=== PATIENT | female | born 1955 | race Two or more races ===

== ENCOUNTER 2019-01-15 20:31 | Inpatient (IN) | payer OTHER ==
[~2019-01-15] VITALS: Ht 162.6 cm; Wt 85.8 kg
--- OUTSIDE RECORDS SUMMARY | 2019-01-15 20:35 | XMS REPORT ---
Author [facility] Address Unknown Phone Unavailable Care Team Providers Care Dry Cleaner Presser Name Role Phone Unavailable Unavailable Payers Payer Name Policy Type Policy Number Effective Date Expiration Date Problems This patient has no known problems. Allergies, Adverse Reactions, Alerts Allergy Name Allergy Type Status Severity Reaction(s) Onset Date Inactive Date Treating Clinician Comments No Known Allergies DA Active U 2018-12-19 00:00:00 No Known Allergies DA Active U 2018-12-13 00:00:00 Medications This patient has no known medications. Results Test Description Test Time Test Comments Text Results Atomic Results Result Comments GLUBED 2018-12-26 06:44:00 GLUBED (test code=GLUBED) 143 mg/dL 74-106 Performed by certified harpoon engagement planning operator at [facility] AB MYCOPLASMA [id number] 01:06:00* Test Item Value Reference Range Comments AB MYCOPLAS PNEUMONIAE IGM EIA (test code=MYCOMABEIA) <770 U/mL 0-769 Negative <770Clinically significant amount of M. pneumoniae antibodynot detected. Low Positive 770 - 950M. pneumoniae specific IgM presumptively detected. Itis recommended that another sample be collected 1-2weeks later to assure reactivity. Positive >950Highly significant amount of M. p neumoniae specificIgM antibody detected.Performed At: [address] [id number] Engle MD Ph:[phone] Negative <770 Clinically significant amount of M.pneumoniae antibody not detected. Low Positive 770 - 950 M. pneumoniae specific IgM presumptively detected. It is recommended that another sample be collected 1-2 weeks later to assure reactivity. Positive >950 Highly significant amount of M.pneumoniae specific IgM antibody detected. AB MYCOPLAS PNEUMO IGG EIA (test code=MYCOGABEIA) <100 U/mL 0-99 Negative: <100 Indeterminate: 100 - 320 Positive: >320The reference interval established is intended as abaseline only. Values >100 may indicate a recentinfection with Mycoplasma pneumoniae and need to beconfirmed either by a positive IgM result and/or anadditional specimen drawn 2-4 weeks later showing asignificant increase in antibody levels. Negative: <100 Indeterminate: 100 - 320 Positive: >320 COMPREHENSIVE METABOLIC [id number] 10:08:00* Test Item Value Reference Range Comments SODIUM (test code=NA) 137 mmol/L 136-145 POTASSIUM (test code=K) 3.9 mmol/L 3.5-5.1 CHLORIDE (test code=CL) 99.0 mmol/L 98-107 CARBON DIOXIDE (test code=CO2) 32.0 mmol/L 21-32 ANION GAP (test code=GAP) 9.9 10-20 GLUCOSE (test code=GLU) 97 mg/dL 74-106 BLOOD UREA NITROGEN (test code=BUN) 10 mg/dL 7-18 GLOMERULAR FILTRATION RATE (test code=GFR) > 60 mL/min >=60 Estimated GFR by using Modified MDRD formula.Chronic kidney disease is defined as either kidney damageor GFR <60 mL/min/1.73 m2 for >3 months. CREATININE (test code=CREAT) 0.60 mg/dL 0.55-1.02 Note change in reference range due to change in reagent. BUN/CREATININE RATIO (test code=BUN/CREA) 16.7 10-20 TOTAL PROTEIN (test code=PROT) 6.2 gram/dL 6.4-8.2 ALBUMIN (test code=ALB) 2.4 g/dL 3.4-5.0 GLOBULIN (test code=GLOB) 3.8 gram/dL 2.7-4.2 ALBUMIN/GLOBULIN RATIO (test code=A/G) 0.6 0.75-1.50 CALCIUM (test code=CA) 9.5 mg/dL 8.5-10.1 BILIRUBIN TOTAL (test code=BILT) 0.20 mg/dL 0.0-1.0 SGOT/AST (test code=AST) 16 IUnit/L 15-37 SGPT/ALT (test code=ALT) 60 IUnit/L 12-78 ALKALINE PHOSPHATASE TOTAL (test code=ALKP) 104 IUnit/L 45-117 Note change in reference range due to change in reagent. [id number] 10:08:00* Test Item Value Reference Range Comments MAGNESIUM (test code=MAG) 1.9 mg/dL 1.8-2.4 ALPHA 1 [id number] 10:08:00* Test Item Value Reference Range Comments ALPHA 1 ANTITRYPSIN (test code=DEHG0BFM) 237 mg/dL 90-200 Performed At: DA [facility] [id number] [facility] [address] [place], [place] [id number] CN MD Ph:[phone] BASIC METABOLIC [id number] 05:46:00* Test Item Value Reference Range Comments SODIUM (test code=NA) 137 mmol/L 136-145 POTASSIUM (test code=K) 4.3 mmol/L 3.5-5.1 CHLORIDE (test code=CL) 98.0 mmol/L 98-107 CARBON DIOXIDE (test code=CO2) 33.0 mmol/L 21-32 ANION GAP (test code=GAP) 10.3 10-20 GLUCOSE (test code=GLU) 113 mg/dL 74-106 BLOOD UREA NITROGEN (test code=BUN) 14 mg/dL 7-18 GLOMERULAR FILTRATION RATE (test code=GFR) > 60 mL/min >=60 Estimated GFR by using Modified MDRD formula.Chronic kidney disease is defined as either kidney damageor GFR <60 mL/min/1.73 m2 for >3 months. CREATININE (test code=CREAT) 0.60 mg/dL 0.55-1.02 Note change in reference range due to change in reagent. BUN/CREATININE RATIO (test code=BUN/CREA) 23.3 10-20 CALCIUM (test code=CA) 10.1 mg/dL 8.5-10.1 BASIC METABOLIC [id number] 05:36:00* Test Item Value Reference Range Comments SODIUM (test code=NA) 137 mmol/L 136-145 POTASSIUM (test code=K) 4.3 mmol/L 3.5-5.1 CHLORIDE (test code=CL) 98.0 mmol/L 98-107 CARBON DIOXIDE (test code=CO2) mmol/L 21-32 ANION GAP (test code=GAP) 10-20 GLUCOSE (test code=GLU) mg/dL 74-106 BLOOD UREA NITROGEN (test code=BUN) mg/dL 7-18 GLOMERULAR FILTRATION RATE (test code=GFR) mL/min >=60 CREATININE (test code=CREAT) mg/dL 0.55-1.02 BUN/CREATININE RATIO (test code=BUN/CREA) 10-20 CALCIUM (test code=CA) mg/dL 8.5-10.1 - XR FOREARM 2 VIEWS [id number] 14:24:00 FAX: Vladimir Sinha MD [phone] [place]: St: ADM Name: EL MARTIN [facility] : [birth year] Age/S: 63/F [address] [facility] Unit #: [id number] Loc: V.[address] [place] [address] Phys: Vladimir Sinha MD Acct: [id number] Dis Date: Status: ADM IN PHONE #: [phone] Exam Date: 12/22/2018 1404 FAX #: [phone] Reason: RIGHT RADIAL HEAD FRACTURE EXAMS: CPT CODE: [id number] XR FOREARM [address] [place] [address] CLINICAL HISTORY: RIGHT RADIAL HEAD FRACTURE TECHNIQUE: 2 views of the right forearm C OMPARISON: None FINDINGS: Interval placement of cast partly obscures fine bony details and soft tissues. Redemonstration of minimally displaced fracture of the radial head. No change in bony ali gnment. Remaining bones are within normal limits. IMPRESSION: Stable appearance of the radial head fracture fr om the previous examination. at 1424 Reported and signed by: Richard Cochran MD CC: Vladimir Sinha MD Technologist: PEPPER CONKLIN RT(R) Trnscrd Date/Time/By: 12/22/2018 (6052) : By: [email or web address] Orig Print D/T: S: 12/22/2018 (9718) PAGE 1 Signed Report SED RATE [id number] 13:03:00* Test Item Value Reference Range Comments SED RATE WESTERGREN (test code=SEDW) 47 mm/hr 0-20 SED [id number] 13:03:00* Test Item Value Reference Range Comments SED RATE (test code=SEDW) 47 mm/hr 0-20 WINTROBE METHOD: NORMAL RANGE FOR MEN: 0-9 MM/HR WOMAN: 0-20 MM/HR COMPREHENSIVE METABOLIC [id number] 06:29:00* Test Item Value Reference Range Comments SODIUM (test code=NA) 137 mmol/L 136-145 POTASSIUM (test code=K) 3.9 mmol/L 3.5-5.1 CHLORIDE (test code=CL) 99.0 mmol/L 98-107 CARBON DIOXIDE (test code=CO2) 32.0 mmol/L 21-32 ANION GAP (test code=GAP) 9.9 10-20 GLUCOSE (test code=GLU) 97 mg/dL 74-106 BLOOD UREA NITROGEN (test code=BUN) 10 mg/dL 7-18 GLOMERULAR FILTRATION RATE (test code=GFR) > 60 mL/min >=60 Estimated GFR by using Modified MDRD formula.Chronic kidney disease is defined as either kidney damageor GFR <60 mL/min/1.73 m2 for >3 months. CREATININE (test code=CREAT) 0.60 mg/dL 0.55-1.02 Note change in reference range due to change in reagent. BUN/CREATININE RATIO (test code=BUN/CREA) 16.7 10-20 TOTAL PROTEIN (test code=PROT) 6.2 gram/dL 6.4-8.2 ALBUMIN (test code=ALB) 2.4 g/dL 3.4-5.0 GLOBULIN (test code=GLOB) 3.8 gram/dL 2.7-4.2 ALBUMIN/GLOBULIN RATIO (test code=A/G) 0.6 0.75-1.50 CALCIUM (test code=CA) 9.5 mg/dL 8.5-10.1 BILIRUBIN TOTAL (test code=BILT) 0.20 mg/dL 0.0-1.0 SGOT/AST (test code=AST) 16 IUnit/L 15-37 SGPT/ALT (test code=ALT) 60 IUnit/L 12-78 ALKALINE PHOSPHATASE TOTAL (test code=ALKP) 104 IUnit/L 45-117 Note change in reference range due to change in reagent. [id number] 06:29:00* Test Item Value Reference Range Comments MAGNESIUM (test code=MAG) 1.9 mg/dL 1.8-2.4 ALPHA 1 [id number] 06:29:00* Test Item Value Reference Range Comments ALPHA 1 ANTITRYPSIN (test code=EPJU4DHV) mg/dL C REACTIVE [id number] 06:29:00* Test Item Value Reference Range Comments C REACTIVE PROTEIN (test code=CRP) 3.96 mg/dL 0-0.3 B-TYPE NATRIURETIC [id number] 06:13:00* Test Item Value Reference Range Comments B-TYPE NATRIURETIC PEPTIDE (test code=BNP) 402.56 pgram/mL 0-100 COMPREHENSIVE METABOLIC [id number] 06:02:00* Test Item Value Reference Range Comments SODIUM (test code=NA) 137 mmol/L 136-145 POTASSIUM (test code=K) 3.9 mmol/L 3.5-5.1 CHLORIDE (test code=CL) 99.0 mmol/L 98-107 CARBON DIOXIDE (test code=CO2) mmol/L 21-32 ANION GAP (test code=GAP) 10-20 GLUCOSE (test code=GLU) mg/dL 74-106 BLOOD UREA NITROGEN (test code=BUN) mg/dL 7-18 GLOMERULAR FILTRATION RATE (test code=GFR) mL/min >=60 CREATININE (test code=CREAT) mg/dL 0.55-1.02 BUN/CREATININE RATIO (test code=BUN/CREA) 10-20 TOTAL PROTEIN (test code=PROT) gram/dL 6.4-8.2 ALBUMIN (test code=ALB) g/dL 3.4-5.0 GLOBULIN (test code=GLOB) gram/dL 2.7-4.2 ALBUMIN/GLOBULIN RATIO (test code=A/G) 0.75-1.50 CALCIUM (test code=CA) mg/dL 8.5-10.1 BILIRUBIN TOTAL (test code=BILT) mg/dL 0.0-1.0 SGOT/AST (test code=AST) IUnit/L 15-37 SGPT/ALT (test code=ALT) IUnit/L 12-78 ALKALINE PHOSPHATASE TOTAL (test code=ALKP) IUnit/L 45-117 [id number] 06:02:00* Test Item Value Reference Range Comments MAGNESIUM (test code=MAG) mg/dL 1.8-2.4 ALPHA 1 [id number] 06:02:00* Test Item Value Reference Range Comments ALPHA 1 ANTITRYPSIN (test code=[id number]) mg/dL CBC W/AUTO [id number] 06:01:00* Test Item Value Reference Range Comments WHITE BLOOD CELL (test code=WBC) 7.3 K/mm3 4.5-12.5 RED BLOOD CELL (test code=RBC) 3.53 mill/mm3 3.7-5.2 HEMOGLOBIN (test code=HGB) 11.1 gram/dL 11.5-15.5 HEMATOCRIT (test code=HCT) 33.5 % 36.0-46.0 MEAN CELL VOLUME (test code=MCV) 94.9 fL 80-98 MEAN CELL HGB (test code=MCH) 31.4 picogram 27.0-33.0 MEAN CELL HGB CONCETRATION (test code=MCHC) 33.1 gram/dL 33.0-36.0 RED CELL DISTRIBUTION WIDTH (test code=RDW) 13.5 % 11.6-16.2 RED CELL DISTRIBUTION WIDTH SD (test code=RDW-SD) 46.6 fL 37.0-51.0 PLATELET COUNT (test code=PLT) 242 K/mm3 150-450 RESULT VERIFIED BY REPEAT ANALYSIS MEAN PLATELET VOLUME (test code=MPV) 10.1 fL 6.7-11.0 NEUTROPHIL % (test code=NT%) 74.5 % 39.0-69.0 IMMATURE GRANULOCYTE % (test code=IG%) 0.7 % 0.0-5.0 LYMPHOCYTE % (test code=LY%) 16.3 % 25.0-55.0 MONOCYTE % (test code=MO%) 8.3 % 0.0-10.0 EOSINOPHIL % (test code=EO%) 0.1 % 0.0-5.0 BASOPHIL % (test code=BA%) 0.1 % 0.0-1.0 NUCLEATED RBC % (test code=NRBC%) 0.0 % 0-0 NEUTROPHIL # (test code=NT#) 5.40 K/mm3 1.8-7.7 IMMATURE GRANULOCYTE # (test code=IG#) 0.05 x10 3/uL 0-0.03 LYMPHOCYTE # (test code=LY#) 1.18 K/mm3 1.0-5.0 MONOCYTE # (test code=MO#) 0.60 K/mm3 0-0.8 EOSINOPHIL # (test code=EO#) 0.01 K/mm3 0.0-0.5 BASOPHIL # (test code=BA#) 0.01 K/mm3 0.0-0.2 NUCLEATED RBC # (test code=NRBC#) 0.00 K/mm3 0.0-0.1 MANUAL DIFF REQUIRED (test code=MDIFF) NO LEGIONELLA ANTIGEN,URINE,[id number] 02:39:00* Test Item Value Reference Range Comments LEGIONELLA ANTIGEN,URINE,AMANDA (test code=LEGAGUR) NEGATIVE NEGATIVE - CTA [id number] 18:10:00 Name: EL DEVINE [facility] : 1955 Age/S: 63 / F [address] [facility]: [id number] Loc: [place] [address] Phys: Jorgito Messer MD Acct: [id number] Dis Date: Status: ADM IN PHONE #: [phone] Exam Date: 12/21/2018 3159 FAX #: [phone] Reason: hypoxemic respfailure, shortness of breath EXAMS: CPT CODE: [id number] CTA CHEST 20363 REASON FOR EXAM: hypoxemic respfailure, shortness of breath EXAM ORDER DATE: 12/21/2018 12:35 PM Ordering M.DNadeem: Jorgito Messer MD PROCEDURE: - CTA CHEST Comparison:Frontal chest x-ray earlier today at 10:[address] images of the chest were obtained following administration of IV contrast using a PE protocol. Reconstructed sagittal and coronal images of the chest were provided for interpretation. Dose reduction techniques were applied. FINDINGS: Visualized neck: Normal Airways, Lungs and Pleura: Central airways are clear. There is subsegmental atelectasis in the bilateral lung bases, more pronounced on the right side. No pleural effusion or pneumothorax. In the posterior segment of the right upper lobe (07/03 through 07/05) there are a few airspace opacities which may represent an infectious process. Heart, great vessels, pulmonary vessels, mediastinum: No pulmonary embolus to the level of the segmental arteries. Pulmonary trunk is s lightly enlarged measuring 3.2 cm in diameter. No evidence of right heart strain is seen. Atherosclerotic disease is scattered throughout the thorac ic aorta and the coronary arteries. No pericardial effusion. Lymph nodes: Prominent hilar lymph nodes are seen bilaterally. There are also s ubcentimeter mediastinal lymph nodes. No axillary or internal mammary herbert opathy. Musculoskeletal/chest wall: Degenerative changes are prese nt in the bilateral shoulders and throughout the spine. Visu alized upper abdomen: Normal IMPRESSION: P AGE 2 Signed Report (CONTINUED) Name : EL DEVINE [facility] : [birth year] Age/S: 63 / F [address] [facility] Unit #: [id number] Loc: [place] [address] Phys: Jorgito Messer MD Acct: [id number] Dis Date: Status: ADM IN PHONE #: Exam Date: 12/21/2018 175 FAX #: [phone] Reason: hypoxemic respfailure, shortness of breath EXAMS: CPT CODE: [id number] CTA CHEST 02971 <Continued> No pulmonary embolus or evidence of right heart strain. Increased caliber of the pulmonary trunk suggests pulmonary artery hypertension. Opacities in the posterior segment of the right upper lobe may represent an infectious process. Bilateral hilar adenopathy is present. These are nonspecific and may be reactive. Mild subsegmental atelectasis in the bilateral lung bases. at 1810 Reported and signed by: Marco A Cochran MD CC: Vladimir Sinha MD; Jrogito Messer MD Technologist:Lita Shipman RT(R),CT; CTDI: DLP: Trnscb Date/Time: 12/21/2018 (1809) [email or web address] Orig Print D/T: S: 12/21/2018 (1813) PAGE 2 Signed Report ARTERIAL BLOOD [id number] 14:51:00* Test Item Value Reference Range Comments ARTERIAL BLOOD GAS PH (test code=PHA) 7.45 7.35-7.45 ARTERIAL BLOOD GAS PCO2 (test code=PCO2A) 43.5 mm Hg 35-45 ARTERIAL BLOOD GAS PO2 (test code=PO2A) 42.4 mmHg 80-100 Results called to and read back by [employer] 14:50 - 12/21/2018; by CELIA BICARBONATE TOTAL HCO3 (test code=HCO3) 29.7 mmol/L 23.0-27.0 BASE EXCESS (test code=NADIR) 5.1 mmol/L -3.0-5.0 ABG O2 SATURATION (test code=SATA) 80.5 % 90.0-98.0 ABG TYPE (test code=TYPEA) Arterial FIO2 (test code=FIO2A) 21.0 ABG SITE (test code=SITEA) Lt RADIAL ARTERY MODIFIED ALLENS (test code=MODALL) Yes CHECK PERFORMED HEMATOCRIT (test code=HCT/ABG) 36 % 35-47 TOTAL HGB (test code=THB) 12.4 gram/dL 11.5-15.5 HGB O2 SAT (test code=HBOSAT) 80.2 % 94.00-98.00 CARBOXYHEMOGLOBIN (test code=HOHGBT) 0.1 %totalHg 0.5-1.5 Results called to and read back by [employer] 14:50 - 12/21/2018; by CELIA METHEMOGLOBIN (test code=METHGB) 0.3 % 0.0-1.50 O2 CONTENT (test code=O2CT) 14.0 % vol 18.0-22.0 PROCALCITONIN (PCT)2018-12-21 13:07:00* Test Item Value Reference Range Comments PROCALCITONIN (PCT) (test code=PROCAL) 0.20 ng/ml Concentration Interpretation (ng/mL) <0.51 Sepsis is not likely. Local bacterial infection is possible. (LOW RISK for progression to Sepsis) 0.51 - 2.00 Sepsis is possible, but other conditions are known to elevate PCT as well. (MODERATE RISK for progression to Sepsis) > 2.00 Sepsis is likely, unless other causes are known. (HIGH RISK for progression to Severe Sepsis or Septic Shock) 10.00 High likelihood of Severe Sepsis or Septic or higher Shock. *Increased PCT levels may not always be related to systemic bacterial infection.*Low PCT levels do not automatically exclude the presence of bacterial infection.*All results should be interpreted taking into account the patients history. [id number] 12:25:00* Test Item Value Reference Range Comments GLUBED (test code=GLUBED) 152 mg/dL 74-106 Performed by certified harpoon engagement planning operator at [facility] - XR CHEST 1 [id number] 10:58:00 FAX: Vladimir Sinha MD [phone] [place]: [address] St: ADM Name: EL MARTIN [facility] : [birth year] Age/S: 63/F [address] [facility] Unit #: [id number] Loc: [place] [address] Phys: Vladimir Sinha MD Acct: [id number] Dis Date: Status: ADM IN PHONE #: [phone] Exam Date: 12/21/2018 1057 FAX #: [phone] Reason: hypoxia EXAMS: CPT CODE: [id number] XR CHEST 1 V 82692 HISTORY: Hypoxia. CO MPARISON: December 20, 2018. No acute infiltrates, effusion or co ngestion is noted. Lung scarring. Cardiomegaly. IMPRESSIO N: No acute infiltrates, effusion or congestion. at 1058 Reported and signed by: Christopher Chaudhary M.D. CC: Vladimir Sinha MD Technologist: RT CLAUDIA(R) Trnscrd Date/Time/By: 12/22/19 19 (5471) : By: [email or web address] Orig Print D/T: S: 12/21/2018 (9793) PAGE 1 Signed Report BASIC METABOLIC [id number] 02:19:00* Test Item Value Reference Range Comments SODIUM (test code=NA) 138 mmol/L 136-145 POTASSIUM (test code=K) 3.8 mmol/L 3.5-5.1 CHLORIDE (test code=CL) 101.0 mmol/L 98-107 CARBON DIOXIDE (test code=CO2) 27.0 mmol/L 21-32 ANION GAP (test code=GAP) 13.8 10-20 GLUCOSE (test code=GLU) 131 mg/dL 74-106 BLOOD UREA NITROGEN (test code=BUN) 12 mg/dL 7-18 GLOMERULAR FILTRATION RATE (test code=GFR) > 60 mL/min >=60 Estimated GFR by using Modified MDRD formula.Chronic kidney disease is defined as either kidney damageor GFR <60 mL/min/1.73 m2 for >3 months. CREATININE (test code=CREAT) 0.70 mg/dL 0.55-1.02 Note change in reference range due to change in reagent. BUN/CREATININE RATIO (test code=BUN/CREA) 17.1 10-20 CALCIUM (test code=CA) 8.6 mg/dL 8.5-10.1 [id number] 02:19:00* Test Item Value Reference Range Comments MAGNESIUM (test code=MAG) 1.8 mg/dL 1.8-2.4 BASIC METABOLIC [id number] 02:03:00* Test Item Value Reference Range Comments SODIUM (test code=NA) 138 mmol/L 136-145 POTASSIUM (test code=K) 3.8 mmol/L 3.5-5.1 CHLORIDE (test code=CL) 101.0 mmol/L 98-107 CARBON DIOXIDE (test code=CO2) mmol/L 21-32 ANION GAP (test code=GAP) 10-20 GLUCOSE (test code=GLU) mg/dL 74-106 BLOOD UREA NITROGEN (test code=BUN) mg/dL 7-18 GLOMERULAR FILTRATION RATE (test code=GFR) mL/min >=60 CREATININE (test code=CREAT) mg/dL 0.55-1.02 BUN/CREATININE RATIO (test code=BUN/CREA) 10-20 CALCIUM (test code=CA) mg/dL 8.5-10.1 [id number] 02:03:00* Test Item Value Reference Range Comments MAGNESIUM (test code=MAG) mg/dL 1.8-2.4 CBC W/O [id number] 01:33:00* Test Item Value Reference Range Comments WHITE BLOOD CELL (test code=WBC) 7.1 K/mm3 4.5-12.5 RED BLOOD CELL (test code=RBC) 3.64 mill/mm3 3.7-5.2 HEMOGLOBIN (test code=HGB) 11.4 gram/dL 11.5-15.5 HEMATOCRIT (test code=HCT) 35.4 % 36.0-46.0 MEAN CELL VOLUME (test code=MCV) 97.3 fL 80-98 MEAN CELL HGB (test code=MCH) 31.3 picogram 27.0-33.0 MEAN CELL HGB CONCETRATION (test code=MCHC) 32.2 gram/dL 33.0-36.0 RED CELL DISTRIBUTION WIDTH (test code=RDW) 13.3 % 11.6-16.2 PLATELET COUNT (test code=PLT) 187 K/mm3 150-450 MEAN PLATELET VOLUME (test code=MPV) 9.8 fL 6.7-11.0 B-TYPE NATRIURETIC [id number] 17:19:00* Test Item Value Reference Range Comments B-TYPE NATRIURETIC PEPTIDE (test code=BNP) 175.24 pgram/mL 0-100 - XR CHEST 1 [id number] 16:01:00 FAX: Vladimir Sinha MD [phone] [place]: B St: ADM Name: EL MARTIN [facility] : [birth year] Age/S: 63/F [address] Unit #: [id number] Loc: [place] [address] Phys: Vladimir Sinha MD Acct: [id number] Dis Date: Status: ADM IN PHONE #: [phone] Exam Date: 12/20/2018 1500 FAX #: [phone] Reason: shortness of breath EXAMS: CPT CODE: [id number] XR CHEST 1 V 01018 REASON FOR EXAM: shortness of breath Exam Order Date: 12/20/2018 2:55 PM Ordering M.D.: Vladimir Sinha MD PROCEDURE: - XR CHEST 1 V COMPARISON: Frontal chest x-ray the previous night FINDINGS: There is engorgement of the pulmonary vessels and there are subtle airspace opacities in the lung bases. No pleural effusion. Cardio mediastinal silhouette is prominent but stable in size. Degenerati ve changes are present in the spine. Upper abdomen is within normal limits . IMPRESSION: Findings of CHF with pulmonary broderick ma in the lower lung zones. Superimposed infection would be difficult to exclude. at 1 601 Reported and signed by: Marco A Cochran MD CC: Vladimir Sinha MD Technologist: Yue Mcconnell RT(R) Trnscrd Date/Time/By: 12/20/2018 (1609) : By: [email or web address] Orig Print D/T: S: 12/20/2018 (4816) PAGE 1 Signed Report [id number] 11:57:00* Test Item Value Reference Range Comments TROPONIN-I (test code=TROPI) <0.015 ng/mL 0-0.045 COMMENTS TO EDITOR DICTIONARY: COLLECT 3 HOURS AFTER PREVIOUS [id number] 08:39:00* Test Item Value Reference Range Comments TROPONIN-I (test code=TROPI) <0.015 ng/mL 0-0.045 COMMENTS TO EDITOR DICTIONARY: COLLECT 3 HOURS AFTER PREVIOUS SAMPLEURINALYSIS [id number] 07:28:00* Test Item Value Reference Range Comments UA COLOR (test code=COLU) YELLOW YELLOW UA APPEARANCE (test code=APPU) Cloudy CLEAR UA GLUCOSE DIPSTICK (test code=DGLUU) NEGATIVE mg/dL NEGATIVE UA BILIRUBIN DIPSTICK (test code=BILU) NEGATIVE mg/dL NEGATIVE UA KETONE DIPSTICK (test code=KETU) NEGATIVE mg/dL NEGATIVE UA SPECIFIC GRAVITY (test code=SGU) 1.008 1.001-1.035 UA BLOOD DIPSTICK (test code=ALIS) 0.03 mg/dL (Trace) mg/dL NEGATIVE UA PH DIPSTICK (test code=SAY) 6.0 5.0-8.0 UA PROTEIN DIPSTICK (test code=PROU) 20 (Trace) mg/dL NEGATIVE UA UROBILINIOGEN DIPSTICK (test code=URO) Normal mg/dL NEGATIVE UA NITRITE DIPSTICK (test code=RALPH) NEGATIVE NEGATIVE UA LEUKOCYTE ESTERASE W REFLEX (test code=LEUUR) 75 Steve/uL (1+) Steve/uL NEGATIVE UA WBC (test code=WBCU) 11-20 per HPF 0-5 UA RBC (test code=RBCU) 3-5 #/HPF 0-5 UA EPITHELIAL CELLS (test code=EPIU) FEW per HPF FEW UA BACTERIA (test code=BACU) MODERATE #/HPF NONE UA MUCUS (test code=MUCU) FEW #/LPF FEW Urine Source? Clean CatchBASIC METABOLIC [id number] 00:26:00* Test Item Value Reference Range Comments SODIUM (test code=NA) 135 mmol/L 136-145 POTASSIUM (test code=K) 3.8 mmol/L 3.5-5.1 CHLORIDE (test code=CL) 98.0 mmol/L 98-107 CARBON DIOXIDE (test code=CO2) 31.0 mmol/L 21-32 ANION GAP (test code=GAP) 9.8 10-20 GLUCOSE (test code=GLU) 128 mg/dL 74-106 BLOOD UREA NITROGEN (test code=BUN) 8 mg/dL 7-18 GLOMERULAR FILTRATION RATE (test code=GFR) > 60 mL/min >=60 Estimated GFR by using Modified MDRD formula.Chronic kidney disease is defined as either kidney damageor GFR <60 mL/min/1.73 m2 for >3 months. CREATININE (test code=CREAT) 0.70 mg/dL 0.55-1.02 Note change in reference range due to change in reagent. BUN/CREATININE RATIO (test code=BUN/CREA) 11.4 10-20 CALCIUM (test code=CA) 9.1 mg/dL 8.5-10.1 HEPATIC FUNCTION [id number] 00:26:00* Test Item Value Reference Range Comments TOTAL PROTEIN (test code=PROT) 7.2 gram/dL 6.4-8.2 ALBUMIN (test code=ALB) 3.0 g/dL 3.4-5.0 GLOBULIN (test code=GLOB) 4.2 gram/dL 2.7-4.2 ALBUMIN/GLOBULIN RATIO (test code=A/G) 0.7 0.75-1.50 BILIRUBIN TOTAL (test code=BILT) 0.70 mg/dL 0.0-1.0 BILIRUBIN DIRECT (test code=BILD) 0.22 mg/dL 0.0-0.20 SGOT/AST (test code=AST) 11 IUnit/L 15-37 SGPT/ALT (test code=ALT) 18 IUnit/L 12-78 ALKALINE PHOSPHATASE TOTAL (test code=ALKP) 90 IUnit/L 45-117 Note change in reference range due to change in reagent. [id number] 00:26:00* Test Item Value Reference Range Comments TROPONIN-I (test code=TROPI) <0.015 ng/mL 0-0.045 LACTIC [id number] 00:23:00* Test Item Value Reference Range Comments LACTIC ACID (test code=LACT) 0.9 mmol/L 0.4-1.9 BASIC METABOLIC [id number] 00:23:00* Test Item Value Reference Range Comments SODIUM (test code=NA) 135 mmol/L 136-145 POTASSIUM (test code=K) 3.8 mmol/L 3.5-5.1 CHLORIDE (test code=CL) 98.0 mmol/L 98-107 CARBON DIOXIDE (test code=CO2) mmol/L 21-32 ANION GAP (test code=GAP) 10-20 GLUCOSE (test code=GLU) mg/dL 74-106 BLOOD UREA NITROGEN (test code=BUN) mg/dL 7-18 GLOMERULAR FILTRATION RATE (test code=GFR) mL/min >=60 CREATININE (test code=CREAT) mg/dL 0.55-1.02 BUN/CREATININE RATIO (test code=BUN/CREA) 10-20 CALCIUM (test code=CA) mg/dL 8.5-10.1 HEPATIC FUNCTION [id number] 00:23:00* Test Item Value Reference Range Comments TOTAL PROTEIN (test code=PROT) gram/dL 6.4-8.2 ALBUMIN (test code=ALB) g/dL 3.4-5.0 GLOBULIN (test code=GLOB) gram/dL 2.7-4.2 ALBUMIN/GLOBULIN RATIO (test code=A/G) 0.75-1.50 BILIRUBIN TOTAL (test code=BILT) mg/dL 0.0-1.0 BILIRUBIN DIRECT (test code=BILD) mg/dL 0.0-0.20 SGOT/AST (test code=AST) IUnit/L 15-37 SGPT/ALT (test code=ALT) IUnit/L 12-78 ALKALINE PHOSPHATASE TOTAL (test code=ALKP) IUnit/L 45-117 [id number] 00:23:00* Test Item Value Reference Range Comments TROPONIN-I (test code=TROPI) ng/mL 0-0.045 - XR CHEST 1 [id number] 00:20:00 FAX: Regan Franklin MD [phone] [place]: [address] St: REG Name: EL MARTIN [facility] : [birth year] Age/S: 63/F [address] [facility] Unit #: [id number] Loc: THALIA Flanagan [address] Phys: Regan Franklin MD Acct: [id number] Dis Date: Status: REG ER PHONE #: [phone] Exam Date: 12/19/2018 0014 FAX #: [phone] Reason: CODE SEPSIS EXAMS: CPT CODE: [id number] XR CHEST 1 V 08877 CHEST LOCATION: R16 CLINICAL HISTORY: Code sepsis. COMPARISON: No previous exam available. FINDINGS: Cardiomegaly is present, associated with atherosclerotic calcifications in the aorta. Pul monary vascular congestion is present. No pleural fluids. No acute bony abnormality is found. IMPRESSION: Pulmonary vascular con gestion. at 002 0 Reported and signed by: Bety Hayes MD CC: Regan Franklin MD Technologist: Luna Nichols Trnscrd Date/Time/By: (0020) : By: [email or web address] Orig Print D/T: S: 12/20/2018 (0023) PAGE 1 Signed Report CBC W/AUTO [id number] 23:57:00* Test Item Value Reference Range Comments WHITE BLOOD CELL (test code=WBC) 15.1 K/mm3 4.5-12.5 RED BLOOD CELL (test code=RBC) 4.06 mill/mm3 3.7-5.2 HEMOGLOBIN (test code=HGB) 12.8 gram/dL 11.5-15.5 HEMATOCRIT (test code=HCT) 38.6 % 36.0-46.0 MEAN CELL VOLUME (test code=MCV) 95.1 fL 80-98 MEAN CELL HGB (test code=MCH) 31.5 picogram 27.0-33.0 MEAN CELL HGB CONCETRATION (test code=MCHC) 33.2 gram/dL 33.0-36.0 RED CELL DISTRIBUTION WIDTH (test code=RDW) 13.4 % 11.6-16.2 RED CELL DISTRIBUTION WIDTH SD (test code=RDW-SD) 47.0 fL 37.0-51.0 PLATELET COUNT (test code=PLT) 211 K/mm3 150-450 MEAN PLATELET VOLUME (test code=MPV) 9.7 fL 6.7-11.0 NEUTROPHIL % (test code=NT%) 84.1 % 39.0-69.0 IMMATURE GRANULOCYTE % (test code=IG%) 1.0 % 0.0-5.0 LYMPHOCYTE % (test code=LY%) 6.1 % 25.0-55.0 MONOCYTE % (test code=MO%) 8.4 % 0.0-10.0 EOSINOPHIL % (test code=EO%) 0.1 % 0.0-5.0 BASOPHIL % (test code=BA%) 0.3 % 0.0-1.0 NUCLEATED RBC % (test code=NRBC%) 0.0 % 0-0 NEUTROPHIL # (test code=NT#) 12.69 K/mm3 1.8-7.7 IMMATURE GRANULOCYTE # (test code=IG#) 0.15 x10 3/uL 0-0.03 LYMPHOCYTE # (test code=LY#) 0.92 K/mm3 1.0-5.0 MONOCYTE # (test code=MO#) 1.27 K/mm3 0-0.8 EOSINOPHIL # (test code=EO#) 0.01 K/mm3 0.0-0.5 BASOPHIL # (test code=BA#) 0.05 K/mm3 0.0-0.2 NUCLEATED RBC # (test code=NRBC#) 0.00 K/mm3 0.0-0.1 MANUAL DIFF REQUIRED (test code=MDIFF) NO CBC W/AUTO [id number] 23:55:00* Test Item Value Reference Range Comments WHITE BLOOD CELL (test code=WBC) K/mm3 4.5-12.5 RED BLOOD CELL (test code=RBC) mill/mm3 3.7-5.2 HEMOGLOBIN (test code=HGB) 12.8 gram/dL 11.5-15.5 HEMATOCRIT (test code=HCT) 38.6 % 36.0-46.0 MEAN CELL VOLUME (test code=MCV) fL 80-98 MEAN CELL HGB (test code=MCH) picogram 27.0-33.0 MEAN CELL HGB CONCETRATION (test code=MCHC) gram/dL 33.0-36.0 RED CELL DISTRIBUTION WIDTH (test code=RDW) % 11.6-16.2 RED CELL DISTRIBUTION WIDTH SD (test code=RDW-SD) fL 37.0-51.0 PLATELET COUNT (test code=PLT) K/mm3 150-450 MEAN PLATELET VOLUME (test code=MPV) fL 6.7-11.0 NEUTROPHIL % (test code=NT%) % 39.0-69.0 IMMATURE GRANULOCYTE % (test code=IG%) % 0.0-5.0 LYMPHOCYTE % (test code=LY%) % 25.0-55.0 MONOCYTE % (test code=MO%) % 0.0-10.0 EOSINOPHIL % (test code=EO%) % 0.0-5.0 BASOPHIL % (test code=BA%) % 0.0-1.0 NEUTROPHIL # (test code=NT#) K/mm3 1.8-7.7 LYMPHOCYTE # (test code=LY#) K/mm3 1.0-5.0 MONOCYTE # (test code=MO#) K/mm3 0-0.8 EOSINOPHIL # (test code=EO#) K/mm3 0.0-0.5 BASOPHIL # (test code=BA#) K/mm3 0.0-0.2 POC LACTIC [id number] 23:44:00* Test Item Value Reference Range Comments POC LACTIC ACID (test code=POCLAC) 0.89 MMOL/L 0.4-2.2 - XR FOREARM 2 VIEWS [id number] 21:04:00 FAX: Papi Torres [phone] [place]: B St: PRE Name: EL MARTIN [facility] : [birth year] Age/S: 63/F [address] [facility] Unit #: [id number] Loc: THALIA Flanagan [address] Phys: Papi Zafar MD Acct: [id number] Dis Date: Status: PRE ER PHONE #: [phone] Exam Date: 12/13/20182039 FAX #: [phone] Reason: right forearm pain on ulnar side EXAMS: CPT CODE: [id number] XR [place] [address] [place] [id number] HISTORY: Pain on the ulnar side. COMPARISON: None available. 2 views of the right forearm: Nondisplaced transverse fracture of the radial head. No joint fluid is visible. No AVN of the scaphoid or the lunate bones. Narrowed wrist joint. Soft tissues appear within normal limits. I MPRESSION: Nondisplaced transverse fracture suspected along th e radial head. Correlate clinically. No significant joint fluid visibl e. at 2103 Reported and signed by: Christopher Chaudhary M.D. CC: Papi Zafar MD [employer] gist: EDY OCASIO RT (R); ... Trnscrd Date/Time/B y: 12/13/2018 (2103) : By: [email or web address] Orig Print D/T: S: 12/13/2018 (29 10) PAGE 1 Signed Report
[2019-01-15] MEDS ORDERED: ASPIRIN 81 MG CHEW TAB PO ONE (20:45)
--- NOTE | 2019-01-15 23:31 | Diagnostic Imaging Report ---
EXAMINATION: CHEST 2 VIEWS INDICATION: Pain, shortness breath and swelling. COMPARISON: None FINDINGS: TUBES and LINES: None. LUNGS: Lungs are well inflated. Mild bilateral interstitial edema. There is mild prominence of the central pulmonary vasculature, consistent with pulmonary venous congestion. Bibasilar subsegmental atelectasis. PLEURA: No pleural effusion or pneumothorax. HEART AND MEDIASTINUM: Cardiac size is mildly enlarged. Prominence of the pulmonary page bilaterally. BONES AND SOFT TISSUES: No acute osseous lesion. UPPER ABDOMEN: No free air under the diaphragm. IMPRESSION: Mild pulmonary venous congestion. Signed by: Dr. Thomas Chan M.D. on 01/15/2019 11:27 PM
[2019-01-15 23:58] LABS: BASOPHILS % 0.3 % (0.0-1.0); EOSINOPHILS # (AUTO) 0.1 (0.0-0.4); EOSINOPHILS % 0.8 % (0.0-6.0); LYMPHOCYTES # (AUTO) 0.6 (1.0-3.2); LYMPHOCYTES % 6.6 % (18.0-39.1); MEAN CORPUSCULAR HEMOGLOBIN 31.2 pg (28-32); MEAN CORPUSCULAR HGB CONC 33.3 g/dL (31-35); MEAN CORPUSCULAR VOLUME 93.5 fL (81-99); MONOCYTES # (AUTO) 0.1 (0.2-0.8); MONOCYTES % 1.1 % (4.4-11.3); NEUTROPHILS # (AUTO) 8.6 (2.1-6.9); NEUTROPHILS % 90.6 % (38.7-80.0); PLATELET COUNT 217 x10e3/uL (140-360); RED BLOOD COUNT 4.17 x10e6/uL (3.6-5.1); RED CELL DISTRIBUTION WIDTH 13.1 % (11.7-14.4)
[2019-01-16] VITALS (23 sets, daily range): BP systolic 2–135; BP diastolic 55–125
[2019-01-16 00:17] LABS: ALANINE AMINOTRANSFERASE 15 IU/L (0-55); ALBUMIN 3.3 g/dL (3.5-5.0); ALKALINE PHOSPHATASE 82 IU/L (40-150); ANION GAP 13.3 mmol/L (8-16); BLOOD UREA NITROGEN 9 mg/dL (7-26); BUN/CREATININE RATIO 12 (6-25); CALCIUM 10.1 mg/dL (8.4-10.2); CARBON DIOXIDE 26 mmol/L (22-29); CHLORIDE 102 mmol/L (98-107); CREATINE KINASE 52 IU/L (29-168); CREATININE, SERUM 0.77 mg/dL (0.57-1.11); EST GLOMERULAR FILTRATION RATE > 60 ML/MIN (60-); GLUCOSE 134 mg/dL (74-118); POTASSIUM 4.3 mmol/L (3.5-5.1); SODIUM 137 mmol/L (136-145)
[2019-01-16 00:33] LABS: ABG HCO3 27 mmol/L (23-28); ABG PCO2 46 mmHg (41-51); ABG PH 7.37 (7.31-7.41); ABG PO2 71 mmHg (80-105)
[2019-01-16] MEDS ORDERED: ASPIRIN 81 MG CHEW TAB PO ONE (00:45)
[2019-01-16] MEDS ORDERED: AMLODIPINE BESY10 MG PO (01:42)
[2019-01-16] MEDS ORDERED: CITALOPRAM HBR20 MG PO (01:42)
[2019-01-16] MEDS ORDERED: ADVAIR 250-501 EACH INH (01:42)
[2019-01-16] MEDS ORDERED: LATUDA20 MG PO (01:43)
[2019-01-16] MEDS ORDERED: FUROSEMIDE40 MG PO (01:43)
[2019-01-16] MEDS ORDERED: VITAMIN D10000 UNIT PO (01:43)
[2019-01-16] MEDS ORDERED: PROAIR HFA INH8.5 GM INH (01:43)
[2019-01-16] MEDS ORDERED: K DUR10 MEQ PO (01:43)
[2019-01-16] MEDS ORDERED: LIPITOR20 MG PO (01:43)
[2019-01-16] MEDS ORDERED: NEXIUM40 MG PO (01:43)
[2019-01-16] MEDS ORDERED: ACETAMINOPHEN325 M1 PO (01:43)
[2019-01-16] MEDS ORDERED: WELLBUTRIN SR150 MG PO (01:43)
[2019-01-16] MEDS ORDERED: MOBIC15 MG PO (01:43)
[2019-01-16] MEDS: ALBUTEROL/IPRATROPIUM 3 ML NEB NEB SCH ×6 (02:15→22:45)
[2019-01-16] MEDS ORDERED: PNEUMOCOCCAL VACCINE POLYVALENT 23 MCG/0.5 ML VIAL IM SCH (02:24)
--- NOTE | 2019-01-16 05:00 | NUR ---
Respiratory therapist notified of pt's missed breathing treatment for 03:00, said she was unaware
[2019-01-16] MEDS ORDERED: ALBUTEROL SULFATE HFA 8GM INHALATION AEROSOL INH PRN (07:30)
[2019-01-16 08:13] LABS: CREATINE KINASE 278 IU/L (29-168)
[2019-01-16] MEDS ORDERED: FUROSEMIDE INJ 10 MG/ML 4 ML VIAL IV ONE (08:15)
[2019-01-16] MEDS ORDERED: DOXYCYCLINE 100MG/NS 100ML 100 ML IV SCH (08:30)
[2019-01-16] MEDS: SALMETEROL/FLUTICASONE 250/50 INH SCH ×2 (09:00→19:15)
[2019-01-16] MEDS: CITALOPRAM HYDROBROMIDE 20 MG TAB PO SCH (09:04)
[2019-01-16] MEDS: BUPROPION HCL SR 150 MG TAB PO SCH (09:04)
[2019-01-16] MEDS: METHYLPREDNISOLONE SOD SUCC 40 MG/ML VIAL 1ML IV SCH ×2 (09:05→20:58)
[2019-01-16] MEDS: PANTOPRAZOLE SOD 40 MG TABEC PO SCH (09:05)
--- NOTE | 2019-01-16 10:00 | NUR ---
Pt stated burning with IV doxycycline, iv flushed, patent, pharmacy was consulted. Called and spoke with Dr Nestor Badillo. Order to switch to PO doxycycline received.
[2019-01-16] MEDS: AMLODIPINE BESYLATE 10 MG TAB PO SCH (10:37)
[2019-01-16] MEDS: DOXYCYCLINE HYCLATE TABLET 100 MG TAB PO SCH ×2 (11:03→20:58)
--- NOTE | 2019-01-16 14:02 | Consultation ---
DATE OF CONSULTATION: Pulmonary Critical Care Consultation HISTORY OF PRESENT ILLNESS: The patient has a history of COPD. She uses Advair at home as well as rescue inhaler. She does not have any oxygen at home. She does not know of any prior cardiac problems. The patient reports worsening dyspnea and congestion. She notes a cough productive of small amounts of phlegm. She also reports some leg edema. She has no chest pain. She is not having any nausea or vomiting. PAST SURGICAL HISTORY: Status post cholecystectomy. PAST MEDICAL HISTORY: 1. COPD. 2. Hypertension. SOCIAL HISTORY: The patient just quit smoking upon arriving to the hospital. She is not an active drinker. ALLERGIES: THERE ARE NO KNOWN DRUG ALLERGIES. FAMILY HISTORY: Family history is noncontributory. REVIEW OF SYSTEMS: CONSTITUTIONAL: The patient is afebrile. She has no headache. She has no neck pain. She is not complaining of any facial swelling or erythema. CARDIAC: Reveals regular rate and rhythm with a normal S1, S2. There are no murmurs or rubs. There are rhonchorous breath sounds bilaterally. There is no wheezing. ABDOMEN: Soft, nontender. There is no rebound or guarding. EXTREMITIES: Show 2+ leg edema. NEUROLOGIC: Shows no focal abnormalities. LABORATORY DATA: The BUN to creatinine ratio is 9 to 0.77. The other electrolytes are within normal limits. The white blood cell count is 9.4 and hemoglobin is 13. The platelet count is 217. ABG is 7.37 and the CO2 is 46 and the O2 71. bicarb is 27. RADIOGRAPHIC DATA: Chest x-ray shows mild pulmonary venous congestion. IMPRESSION: 1. Odzwo-fz-wzsmbch respiratory failure. 2. Qmlxb-lo-fgyouqz heart failure. 3. Chronic obstructive pulmonary disease. 4. Hypertension. PLAN: 1. The patient will be started on Solu-Medrol along with bronchodilators. The patient will also receive IV antibiotics. 2. Lasix IV now. 3. Echocardiogram and Cardiology evaluation. 4. Venous duplex. 5. Swallowing evaluation. Ronnell Badillo MD [facility]/DUSTIN /[id number]
--- NOTE | 2019-01-16 15:06 | NUR ---
Nutrition Screen Note RD Recommendation for Physician: - Continue current diet Plan of Care: RD following, monitoring for tolerance and adequacy Nutrition reason for involvement: Nutrition Risk Trigger- MST2 Primary Diagnose(s): COPD, hypoxia, respiratory distress PMH: COPD, HTN, cholecystectomy Ht: 64 in Wt: 186.19 lb BMI: 32 kg/m2 IBW: [address] Assessment: (01/16) 63 YOF admitted for respiratory distress, evaluated today 2/2 MST2 screen. Pt discussed during am rounds, per RN pt with hx of schizoaffective disorder. Unable to obtain hx from pt at time of attempted visits, pt sleeping and then pt receiving breathing tx. Per RN pt passed BSE this am and pt eating 100% of meals today. RN denies any GI distress. Pt appears well nourished. Chart reviewed. Labs and meds reviewed. Will monitor and continue to follow. Current Diet: Cardiac Malnutrition Evaluation (01/16/19) The patient does not meet criteria for a specified degree of malnutrition at this time. Will re-evaluate at follow-up as appropriate. Unable to evaluate at this time. Diet Education Needs Assessment: Diet education not indicated at this time. Nutrition Care Level: Low Signed: Julita Barksdale RD, LD, [facility]
[2019-01-16] MEDS: NICOTINE 21 MG/EA PATCH TOP SCH (15:07)
--- NOTE | 2019-01-16 16:03 | NUR ---
WOUNDCARE CONSULT FOR 63 YO FEMALE HX OF COPD AND RESP DISTRESS UPON SKIN ASSESSMENT NO AREAS OF NON BLANCHABLE REDNESS NOTED ANY LONGER NURSING TO CONTINUE TO PROTECT AND OFFLOAD PATIENT FOLLOWING MODERATE PUP PROTOCOL NURSING TO RECONSULT WOUNDCARE FOR ANY FUTURE WOUND OR SKIN MAINTENANCE CONCERNS
[2019-01-16 17:26] LABS: CREATINE KINASE 39 IU/L (29-168)
--- NOTE | 2019-01-16 19:52 | History and Physical ---
HISTORY OF PRESENT ILLNESS: A 63-year-old female with past medical history positive for COPD, hypertension, came from assisted living, complaining of shortness of breath. She was found to have acute respiratory failure. She was admitted to intensive care unit. She was found to have chronic obstructive pulmonary disease exacerbation, acute diastolic congestive heart failure. The patient is sleeping comfortable right now. PAST MEDICAL HISTORY: The patient has a history of chronic obstructive pulmonary disease, hypertension, and congestive heart failure. REVIEW OF SYSTEMS: I cannot do review of systems because she is sleeping. She has a deep sleep right now. ALLERGIES: NOT ALLERGIC TO ANY MEDICATION. PAST SOCIAL HISTORY: She smokes. She does not drink. PHYSICAL EXAMINATION: VITAL SIGNS: The blood pressure 128/55, temperature 38.6, heart rate 71 per minute, respiratory rate is 18 per minute, and oxygen saturation 97%. HEART: Showed regular rhythm. Normal S1, S2 sound. LUNGS: Show decreased breath sounds bilaterally. ABDOMEN: Soft. EXTREMITIES: Showed 1+ pedal edema, which is slowly resolving. LABORATORY DATA: On the BMP; sodium 137, potassium 4.3, chloride 102, CO2 of 26, BUN 9, creatinine 0.77, glucose 134. On the CBC, white blood count 9.4, hemoglobin 13.0, hematocrit 39.0, and platelet count 217,000. AST 9, ALT 15, total bilirubin 0.3, alkaline phosphatase 82. EKG show normal sinus rhythm, left axis deviation. No evidence of any ST-segment elevation or depression. Bilateral Doppler upper extremities show no evidence of DVT. Chest x-ray showed evidence of congestive heart failure. IMPRESSION: 1. Acute respiratory failure, secondary to combination of chronic obstructive pulmonary disease and vpxsz-ze-rsfczdc diastolic congestive heart failure. 2. Chronic obstructive pulmonary disease exacerbation. 3. Nbdox-oe-zrjdzus systolic congestive heart failure. 4. Hypertension. 5. History of smoking. PLAN OF TREATMENT: Continue oxygen. Continue albuterol and Atrovent q.4 hours. Continue doxycycline 100 mg IV twice a day. The patient got the pneumonia vaccine also. Continue albuterol around the clock q.4 hours. Continue citalopram 20 mg daily, amlodipine 10 mg daily, Solu-Medrol 40 mg IV twice a day, Lipitor 20 mg daily, Protonix 40 mg daily, bupropion 150 mg daily, continue monitoring BUN, creatinine, and electrolytes. Dr. Martins has been consulted from the Cardiology point of view, Dr. Ronnell Badillo from the Pulmonary point of view. intensive care unit. Labs have been reviewed. Medication list has been reviewed. Case has been discussed with nursing staff. MD LIN Hernandez/DUSTIN /[id number]
[2019-01-17] VITALS (22 sets, daily range): BP systolic 101–129; BP diastolic 48–85
--- NOTE | 2019-01-17 00:33 | Consultation ---
DATE OF CONSULTATION: 01/16/2019 Cardiology Consultation REQUESTING PHYSICIAN: Saad Barajas MD. REASON FOR CONSULTATION: Congestive heart failure. HISTORY OF PRESENT ILLNESS: This is a 63-year-old women with history of hyperlipidemia and COPD, who presents with complaints of lower extremity edema and shortness of breath. She reports that she has been short of breath for the last week with lower extremity swelling for the last 5 days. She denies any chest pain or palpitations, but does endorse occasional symptoms suggestive of paroxysmal nocturnal dyspnea. Due to her symptoms, she presented to the ER for further evaluation. REVIEW OF SYSTEMS: Negative as per HPI. PAST MEDICAL HISTORY: 1. Hyperlipidemia. 2. COPD. 3. Hypertension. PAST SURGICAL HISTORY: 1. Cholecystectomy. 2. Tubal ligation. ALLERGIES: PLEASE SEE EMR. MEDICATIONS: Please see medication list. SOCIAL HISTORY: She reports she smokes 3-4 cigarettes a day. Denies any alcohol or illicit drugs. FAMILY HISTORY: Denies family history of heart disease. PHYSICAL EXAMINATION: VITAL SIGNS: Temperature 98.2 degrees, pulse 74, respiratory rate 22, blood pressure 125/64, and oxygen saturation 96% on 2 L nasal cannula. GENERAL: Obese woman, no acute distress, well developed and well nourished. HEENT: Normocephalic, atraumatic. Pupils equal. No scleral icterus. NECK: Supple. No thyromegaly or cervical lymphadenopathy. No carotid bruits. LUNGS: Wheezing bilaterally. No crackles appreciated. CARDIOVASCULAR: Normal rate. Regular rhythm. No murmur. Normal S1, S2. ABDOMEN: Soft, nontender. EXTREMITIES: 1 to 2+ pitting edema, left greater than right. NEUROLOGIC: Nonfocal exam. LABORATORY DATA: WBC 9.48, hemoglobin 13, hematocrit 39, platelets 217. Sodium 137, potassium 4.3, chloride 102, CO2 of 26, BUN 9, creatinine 0.77. Troponin less than 0.001. BNP 27.6. EKG, normal sinus rhythm, left axis deviation, inferior infarct, age undetermined. Chest x-ray, mild pulmonary venous congestion. Telemetry, normal sinus rhythm. IMPRESSION: 1. Dyspnea. 2. Hypertension. 3. Hyperlipidemia. 4. Chronic obstructive pulmonary disease. RECOMMENDATIONS: Suspect the patient's dyspnea is a combination of COPD exacerbation as well as bfpdi-su-yyeczqf diastolic heart failure. The patient's BNP is within normal range, but this can be falsely low in the setting of obesity. Recommend IV diuresis. Follow creatinine closely. Monitor and replete electrolytes. Treatment of COPD per Pulmonary. Note ordered for bilateral lower extremity venous Doppler. We will review the images once available. Monitor the patient closely on telemetry. Continue home cardiac medications. Thank you for this consult. We will continue to follow. Bryanna Cagle MD ABS/MODL /[id number]
[2019-01-17] MEDS: ALBUTEROL/IPRATROPIUM 3 ML NEB NEB SCH ×7 (02:30→23:40)
[2019-01-17 05:01] LABS: HEMATOCRIT 37.3 % (34.2-44.1); HEMOGLOBIN 12.1 g/dL (12.0-16.0); LYMPHOCYTES # (AUTO) 0.5 (1.0-3.2); LYMPHOCYTES % 5.4 % (18.0-39.1); MEAN CORPUSCULAR HEMOGLOBIN 30.5 pg (28-32); MEAN CORPUSCULAR HGB CONC 32.4 g/dL (31-35); MONOCYTES # (AUTO) 0.3 (0.2-0.8); MONOCYTES % 3.1 % (4.4-11.3); NEUTROPHILS # (AUTO) 8.3 (2.1-6.9); NEUTROPHILS % 91.1 % (38.7-80.0); PLATELET COUNT 214 x10e3/uL (140-360); RED BLOOD COUNT 3.97 x10e6/uL (3.6-5.1); RED CELL DISTRIBUTION WIDTH 13.1 % (11.7-14.4)
[2019-01-17 05:24] LABS: ALANINE AMINOTRANSFERASE 11 IU/L (0-55); ALBUMIN 2.9 g/dL (3.5-5.0); ALBUMIN/GLOBULIN RATIO 0.9 (0.8-2.0); ALKALINE PHOSPHATASE 69 IU/L (40-150); ANION GAP 13.2 mmol/L (8-16); BLOOD UREA NITROGEN 16 mg/dL (7-26); BUN/CREATININE RATIO 21 (6-25); CALCIUM 9.7 mg/dL (8.4-10.2); CARBON DIOXIDE 26 mmol/L (22-29); CHLORIDE 102 mmol/L (98-107); CREATINE KINASE 34 IU/L (29-168); CREATININE, SERUM 0.75 mg/dL (0.57-1.11); EST GLOMERULAR FILTRATION RATE > 60 ML/MIN (60-); GLUCOSE 151 mg/dL (74-118); MAGNESIUM 1.7 MG/DL (1.3-2.1); POTASSIUM 4.2 mmol/L (3.5-5.1); SODIUM 137 mmol/L (136-145)
[2019-01-17] MEDS: ATORVASTATIN 20 MG TAB PO SCH (05:34)
--- NOTE | 2019-01-17 06:42 | Diagnostic Imaging Report ---
EXAMINATION: CHEST SINGLE (PORTABLE) INDICATION: Pain, shortness breath and swelling. COMPARISON: 01/15/2019 FINDINGS: TUBES and LINES: None. LUNGS: Lungs are well inflated. Mild bilateral interstitial edema. There is mild prominence of the central pulmonary vasculature, consistent with pulmonary venous congestion. Bibasilar subsegmental atelectasis. PLEURA: No pleural effusion or pneumothorax. HEART AND MEDIASTINUM: Cardiac size is mildly enlarged. Prominence of the pulmonary page bilaterally. Calcification of the arch. BONES AND SOFT TISSUES: No acute osseous lesion. UPPER ABDOMEN: No free air under the diaphragm. IMPRESSION: No significant interval change. Mild pulmonary venous congestion and interstitial edema. Signed by: Dr. Thomas Chan M.D. on 01/17/2019 6:38 AM
[2019-01-17] MEDS: SALMETEROL/FLUTICASONE 250/50 INH SCH ×2 (07:40→19:10)
[2019-01-17] MEDS: CITALOPRAM HYDROBROMIDE 20 MG TAB PO SCH (08:09)
[2019-01-17] MEDS: METHYLPREDNISOLONE SOD SUCC 40 MG/ML VIAL 1ML IV SCH ×2 (08:09→21:35)
[2019-01-17] MEDS: NICOTINE 21 MG/EA PATCH TOP SCH (08:10)
[2019-01-17] MEDS: BUPROPION HCL SR 150 MG TAB PO SCH (08:10)
[2019-01-17] MEDS: AMLODIPINE BESYLATE 10 MG TAB PO SCH (08:10)
[2019-01-17] MEDS: DOXYCYCLINE HYCLATE TABLET 100 MG TAB PO SCH ×2 (08:10→21:35)
[2019-01-17] MEDS: PANTOPRAZOLE SOD 40 MG TABEC PO SCH (08:10)
--- NOTE | 2019-01-17 10:25 | Progress Note ---
DATE: SUBJECTIVE: The patient is feeling better. She has less dyspnea. She has less congestion and less cough. She has less leg swelling. PHYSICAL EXAMINATION: VITAL SIGNS: The patient is afebrile. The blood pressure is 118/60, saturation is 98%. The pulse is 82. HEENT: Shows no facial swelling or erythema. CARDIAC: Reveals a regular rate and rhythm with normal S1 and S2. There are no murmurs or rubs heard. LUNGS: Auscultation of lungs reveals clear breath sounds bilaterally. There is no wheezing. ABDOMEN: Soft, nontender. There is no rebound or guarding. EXTREMITIES: Show 1 to 2+ leg edema. IMPRESSION: 1. Ejbnt-qr-hqdfjwn diastolic heart failure. 2. Fgcgx-rd-apwqveu respiratory failure. 3. Chronic obstructive pulmonary disease. 4. Hypertension. 5. Hyperlipidemia. PLAN: 1. Taper steroids. 2. Continue bronchodilators and oxygen. 3. Continue diuretics and cardiac regimen as per Cardiology. 4. Await results of venous duplex. Ronnell Badillo MD [facility]/DUSTIN /[id number]
--- NOTE | 2019-01-17 11:35 | NUR ---
ST NOTE: Attempt Speech Therapy session for follow up with diet tolerance, pt with RN having personal care. Will return at later time to complete follow up session.
[2019-01-17] MEDS: ACETAMINOPHEN 325 MG TAB PO PRN (16:00)
--- NOTE | 2019-01-17 17:29 | Progress Note ---
DATE: Internal Medicine Progress Note SUBJECTIVE: The patient is doing better. PHYSICAL EXAMINATION: VITAL SIGNS: Blood pressure 124/61, heart rate 103 per minute, respiratory rate is 24 per minute, and temperature 98.8. HEART: Show regular rhythm. Normal S1 and S2 sound. LUNGS: Show decreased breath sounds bilaterally. ABDOMEN: Soft. LABORATORY DATA: On the BMP; sodium 137, potassium 4.2, chloride 102, CO2 26, BUN 16, creatinine 0.75, and glucose 151. On the CBC, white blood count 9.09, hemoglobin 12.1, hematocrit 37.3, and platelet count 214,000. AST 7, ALT 11, total bilirubin 0.1, and alkaline phosphatase 69. FINAL IMPRESSION: 1. Acute respiratory failure secondary to chronic obstructive pulmonary disease exacerbation. 2. Chronic obstructive pulmonary disease exacerbation. 3. Izeve-lt-yhaegie diastolic congestive heart failure. 4. Hypertension. PLAN OF TREATMENT: Continue albuterol and Atrovent q.4 hours. Continue with albuterol q.4 hours around the clock. Continue amlodipine 10 mg daily, Protonix 40 mg daily, Solu-Medrol 30 mg IV twice a day, Lipitor 20 mg daily. Continue Serevent twice a day. Continue bupropion 150 mg daily, doxycycline 100 mg IV twice a day, citalopram 20 mg daily, Nicoderm patch 21 mg daily. The patient is advised to quit smoking also. Labs have been reviewed. Consultation reports are on the chart review also. Discussed with the nurse at the bedside. Time spent 55 minutes. MD LIN Hernandez/DUSTIN /[id number]
--- NOTE | 2019-01-17 17:42 | NUR ---
Pt did well on 2L NC today, patient still having cough. Dr. Barajas gave orders to move to the floor with telemetry. Dr. Barajas informed that palliative care would like to see patient to discuss with patient stratigies to prevent exacerbations and goals of care. Dr. Barajas gave the ok for palliative care to see patient. [facility] Breonna notified of referral. Patient complaining of R arm pain and headache. Dr. Barajas informed, orders for tylenol prn given. Will continue to monitor the patient.
[2019-01-17] MEDS: FUROSEMIDE INJ 10 MG/ML 4 ML VIAL IV SCH (18:58)
--- NOTE | 2019-01-17 20:34 | Progress Note ---
DATE: 01/17/2019 Cardiology Progress Note SUBJECTIVE: The patient denies chest pain or shortness of breath. OBJECTIVE: VITAL SIGNS: Temperature 98.6 degrees, pulse 82, respiratory rate 25, blood pressure 115/63, and oxygen saturation 97% on 2 liters nasal cannula. GENERAL: Awake, alert, in no acute distress. LUNGS: Clear to auscultation bilaterally. No wheezes or crackles. CARDIOVASCULAR: Normal rate. Regular rhythm. No murmur. Normal S1 and S2. ABDOMEN: Soft and nontender. EXTREMITIES: 1 to 2+ pitting edema, left greater than right. CARDIAC MEDICATIONS: 1. Amlodipine 10 mg p.o. daily. 2. Atorvastatin 20 mg p.o. daily. LABORATORY DATA: CBC; WBC 9.09, hemoglobin 12.1, hematocrit 37.3, and platelets 214. Sodium 137, potassium 4.2, chloride 102, CO2 of 26, BUN 16, and creatinine 0.75. TELEMETRY: Normal sinus rhythm. IMPRESSION: 1. Dyspnea. 2. Hypertension. 3. Hyperlipidemia. 4. Chronic obstructive pulmonary disease. 5. Acute on chronic diastolic heart failure. RECOMMENDATIONS: Suspect the patient's dyspnea is a combination of COPD exacerbation as well as acute on chronic diastolic heart failure. The patient's BNP is within normal limits, but this can be falsely low in the setting of obesity. Gentle IV diuretics. Monitor creatinine closely. Replete electrolytes. Treatment of COPD per primary. Follow up the patient on telemetry. Continue current cardiac medications. Thank you for this consult. We will continue to follow. Bryanna Cagle MD ABS/MODL /[id number]
--- NOTE | 2019-01-17 22:30 | NUR ---
Patient had soft yellow BM, assisted to cleaned and changed diaper/linens/pads/gown at this time. Will continue to monitor.
--- NOTE | 2019-01-17 22:45 | NUR ---
Report received VOLODYMYR Rees. Patient transferred from ICU to unit @ 2049 by bed. Denied pain and no SOB. Respiration even and unlabored with 2liters oxygen continued via nasal canula. Spo2 maintained 96%. V/S WNL. Redness and excoriations on sacrum and DTI on left buttocks noted. Bed in lower position,locked. Patient instructed to call for help as needed, verbalized and understand. Call healy within the reach. Will continue to monitor.
[2019-01-18] VITALS (8 sets, daily range): BP systolic 111–136; BP diastolic 59–77
[2019-01-18] MEDS: ALBUTEROL/IPRATROPIUM 3 ML NEB NEB SCH ×5 (02:40→19:15)
[2019-01-18 05:30] LABS: BASOPHILS % 0.1 % (0.0-1.0); EOSINOPHILS % 0.1 % (0.0-6.0); HEMATOCRIT 36.7 % (34.2-44.1); HEMOGLOBIN 11.8 g/dL (12.0-16.0); LYMPHOCYTES # (AUTO) 0.7 (1.0-3.2); LYMPHOCYTES % 7.7 % (18.0-39.1); MEAN CORPUSCULAR HEMOGLOBIN 30.6 pg (28-32); MEAN CORPUSCULAR HGB CONC 32.2 g/dL (31-35); MEAN CORPUSCULAR VOLUME 95.1 fL (81-99); MONOCYTES # (AUTO) 0.3 (0.2-0.8); NEUTROPHILS % 88.2 % (38.7-80.0); PLATELET COUNT 215 x10e3/uL (140-360); RED BLOOD COUNT 3.86 x10e6/uL (3.6-5.1); RED CELL DISTRIBUTION WIDTH 13.4 % (11.7-14.4)
[2019-01-18 05:51] LABS: ALANINE AMINOTRANSFERASE 14 IU/L (0-55); ALKALINE PHOSPHATASE 71 IU/L (40-150); ANION GAP 13.3 mmol/L (8-16); BLOOD UREA NITROGEN 14 mg/dL (7-26); BUN/CREATININE RATIO 19 (6-25); CALCIUM 9.6 mg/dL (8.4-10.2); CARBON DIOXIDE 27 mmol/L (22-29); CHLORIDE 99 mmol/L (98-107); CREATININE, SERUM 0.72 mg/dL (0.57-1.11); EST GLOMERULAR FILTRATION RATE > 60 ML/MIN (60-); GLUCOSE 120 mg/dL (74-118); POTASSIUM 4.3 mmol/L (3.5-5.1); SODIUM 135 mmol/L (136-145)
[2019-01-18] MEDS: ATORVASTATIN 20 MG TAB PO SCH (06:05)
--- NOTE | 2019-01-18 06:32 | NUR ---
Patient assisted to cleaned and changed diaper/pads at this time. patient tolerated well. Will continue to monitor.
--- NOTE | 2019-01-18 08:32 | Progress Note ---
DATE: SUBJECTIVE: The patient feels better. She has less dyspnea and less cough. PHYSICAL EXAMINATION: VITAL SIGNS: The patient is afebrile. Vital signs are stable. HEENT: Shows no facial swelling or erythema. CARDIAC: Reveals a regular rate and rhythm with a normal S1 and S2. There are no murmurs or rubs. LUNGS: Auscultation of lungs reveals rhonchorous breath sounds bilaterally. There is no wheezing. ABDOMEN: Soft and nontender. There is no rebound or guarding. EXTREMITIES: Show no leg edema or calf tenderness. IMPRESSION: 1. Chronic obstructive pulmonary disease with acute exacerbation. 2. Acute on chronic diastolic heart failure. 3. Hypertension. PLAN: 1. The patient is okay for discharge from my perspective. She needs an oral steroid taper. 2. The patient should continue her bronchodilators. 3. Continue current cardiac regimen. MD ANTONIO Grijalva/DUSTIN /[id number]
[2019-01-18] MEDS: BUPROPION HCL SR 150 MG TAB PO SCH (08:59)
[2019-01-18] MEDS: DOXYCYCLINE HYCLATE TABLET 100 MG TAB PO SCH ×2 (08:59→20:52)
[2019-01-18] MEDS: FUROSEMIDE INJ 10 MG/ML 4 ML VIAL IV SCH (08:59)
[2019-01-18] MEDS: PANTOPRAZOLE SOD 40 MG TABEC PO SCH (08:59)
[2019-01-18] MEDS: CITALOPRAM HYDROBROMIDE 20 MG TAB PO SCH (08:59)
[2019-01-18] MEDS: NICOTINE 21 MG/EA PATCH TOP SCH (08:59)
[2019-01-18] MEDS: METHYLPREDNISOLONE SOD SUCC 40 MG/ML VIAL 1ML IV SCH ×2 (08:59→20:52)
[2019-01-18] MEDS: AMLODIPINE BESYLATE 10 MG TAB PO SCH (09:00)
[2019-01-18] MEDS ORDERED: DIPHENHYDRAMINE HCL 25 MG CAP PO PRN (09:45)
[2019-01-18] MEDS: ACETAMINOPHEN 325 MG TAB PO PRN ×2 (10:19→18:30)
[2019-01-18] MEDS: SALMETEROL/FLUTICASONE 250/50 INH SCH ×2 (11:00→19:15)
--- NOTE | 2019-01-18 12:03 | Progress Note ---
DATE: Internal Medicine Progress Note SUBJECTIVE: The patient is feeling better today. PHYSICAL EXAMINATION: VITAL SIGNS: Blood pressure 136/59, temperature 98.7, heart rate is 85 per minute, respiratory rate 18 per minute, and oxygen saturation 92%. HEART: Show regular rhythm. Normal S1 and S2 sound. LUNGS: Showing decreased breath sounds bilaterally. ABDOMEN: Soft. EXTREMITIES: Show no evidence of cyanosis or hematoma. LABORATORY DATA: On BMP; sodium 135, potassium 4.3, chloride 99, CO2 of 27, BUN 14, creatinine 0.72, and glucose 120. CBC; white blood count 9.09, hemoglobin 11.8, hematocrit 36.7, and platelet count of 215,000. FINAL IMPRESSION: 1. Acute respiratory failure secondary to chronic obstructive pulmonary disease exacerbation. 2. Chronic obstructive pulmonary disease exacerbation. 3. Acute on chronic diastolic congestive heart failure. 4. Hypertension. 5. History of smoking. PLAN OF TREATMENT: Continue albuterol and Atrovent every 4 hours. The patient got the pneumonia vaccine. Continue albuterol every 4 hours as needed, amlodipine 10 mg daily, Protonix 40 mg daily, Solu-Medrol 30 mg IV twice a day, Lipitor 20 mg daily, Serevent one inhalation twice a day, Tylenol 650 mg every 4 hours as needed for pain or fever, bupropion 150 mg daily, doxycycline 100 mg twice a day, furosemide 40 mg daily, citalopram 20 mg daily, and nicotine patch 21 mg daily due to the history of smoking. Tentative discharge for tomorrow as long as the patient keeps . MD LIN Hernandez/DUSTIN /[id number]
--- NOTE | 2019-01-18 14:15 | Progress Note ---
DATE: 01/18/2019 Cardiology Progress Note SUBJECTIVE: The patient denies chest pain or shortness of breath. OBJECTIVE: VITAL SIGNS: Temperature 98.7 degrees, pulse 85, respiratory rate 19, blood pressure 136/59, and oxygen saturation 96% on 2 liters nasal cannula. GENERAL: Awake, alert, in no acute distress. LUNGS: Clear to auscultation bilaterally. No wheezes or crackles. CARDIOVASCULAR: Normal rate. Regular rhythm. No murmur. Normal S1 and S2. ABDOMEN: Soft and nontender. EXTREMITIES: 1 to 2+ pitting edema, left greater than right. CARDIAC MEDICATIONS: 1. Amlodipine 10 mg p.o. daily. 2. Furosemide 40 mg IV daily. 3. Atorvastatin 20 mg p.o. at bedtime. LABORATORY DATA: WBC 9.09, hemoglobin 11.8, hematocrit 36.7, and platelets 215. Sodium 135, potassium 4.3, chloride 99, CO2 of 27, BUN 14, and creatinine 0.72. TELEMETRY: Normal sinus rhythm. IMPRESSION: 1. Dyspnea. 2. Hypertension. 3. Hyperlipidemia. 4. Chronic obstructive pulmonary disease. 5. Acute on chronic diastolic heart failure. RECOMMENDATIONS: Suspect the patient's dyspnea is combination of COPD exacerbation as well as acute on chronic diastolic heart failure. Continue gentle IV diuretics. Monitor creatinine closely. Replete electrolytes. Treatment of COPD per Pulmonary. Maintain the patient on telemetry. Continue current cardiac medications. Thank you for this consult. We will continue to follow. Bryanna Cagle MD ABS/MODL /[id number]
[2019-01-19 04:52] VITALS: BP 119/84
[2019-01-19] MEDS: ATORVASTATIN 20 MG TAB PO SCH (06:34)
[2019-01-19] MEDS: ACETAMINOPHEN 325 MG TAB PO PRN ×3 (06:34→18:14)
[2019-01-19 07:00] VITALS: BP 123/66
--- NOTE | 2019-01-19 07:00 | NUR ---
bedside shift report received pt in stable condition, r hand 22g no ss of infiltration noted, denies any pain at this time, call light in reach will continue to monitor
--- NOTE | 2019-01-19 07:03 | NUR ---
Report given to oncoming RN, walking round done.
[2019-01-19] MEDS: ALBUTEROL/IPRATROPIUM 3 ML NEB NEB SCH ×3 (07:15→15:05)
--- NOTE | 2019-01-19 07:59 | Progress Note ---
DATE: SUBJECTIVE: The patient feels better. She has less dyspnea and less cough. She has no congestion. PHYSICAL EXAMINATION: VITAL SIGNS: Stable. HEENT: Shows no facial swelling or erythema. CARDIAC: Reveals regular rate and rhythm with normal S1 and S2. There are no murmurs or rubs heard. LUNGS: Auscultation of the lungs show clear breath sounds bilaterally. There is no wheezing. ABDOMEN: Soft, nontender. There is no rebound or guarding. EXTREMITIES: Show no leg edema or calf tenderness. There is no cyanosis or clubbing. SKIN: Shows no rashes. IMPRESSION: 1. Chronic obstructive pulmonary disease with acute exacerbation. 2. Kotyq-wp-quctlna diastolic heart failure. 3. Hypertension. PLAN: 1. Okay for discharge. 2. Steroid taper as an outpatient. 3. Continue current bronchodilators. 4. Follow up in 1 to 2 weeks. MD ANTONIO Grijalva/DUSTIN /[id number]
[2019-01-19 08:54] VITALS: BP 123/66
[2019-01-19] MEDS: BUPROPION HCL SR 150 MG TAB PO SCH (09:15)
[2019-01-19] MEDS: AMLODIPINE BESYLATE 10 MG TAB PO SCH (09:15)
[2019-01-19] MEDS: CITALOPRAM HYDROBROMIDE 20 MG TAB PO SCH (09:15)
[2019-01-19] MEDS: DOXYCYCLINE HYCLATE TABLET 100 MG TAB PO SCH (09:15)
[2019-01-19] MEDS: PANTOPRAZOLE SOD 40 MG TABEC PO SCH (09:15)
[2019-01-19] MEDS: METHYLPREDNISOLONE SOD SUCC 40 MG/ML VIAL 1ML IV SCH (09:15)
[2019-01-19] MEDS: NICOTINE 21 MG/EA PATCH TOP SCH (09:15)
[2019-01-19] MEDS: FUROSEMIDE INJ 10 MG/ML 4 ML VIAL IV SCH (09:15)
[2019-01-19] MEDS: SALMETEROL/FLUTICASONE 250/50 INH SCH (11:15)
[2019-01-19 11:23] VITALS: BP 114/65
[2019-01-19] MEDS ORDERED: VIBRAMYCIN100 MG PO (16:26)
[2019-01-19] MEDS ORDERED: NICODERM CQ1 EAC1 TOP (16:27)
--- NOTE | 2019-01-19 16:47 | NUR ---
PT DISCHARGING BACK TO [facility] TODAY CONFIRMED WITH [facility] THAT PT DOES NOT HAVE 02 IN HER APPT 02 SATS ON ROOM AIR 91% PT UNABLE TO AMBULATE, IS WHEELCHAIR BOUND AND ADMITS TO SMOKING CONSTANTLY PT DISCHARGING HOME TODAY NURSE WILL NOTIFY [facility] THAT PT NEEDS A WC VAN FOR DISCHARGE
--- NOTE | 2019-01-19 17:53 | NUR ---
spoke to Alvaro with [facility], awaiting wheelchair van.
[2019-01-19 18:06] VITALS: BP 101/87
--- NOTE | 2019-01-19 18:42 | Progress Note ---
DATE: 01/19/2019 Cardiology Progress Note SUBJECTIVE: The patient denies chest pain or shortness of breath. OBJECTIVE: VITAL SIGNS: Temperature 98.8 degrees, pulse 71, respiratory rate 25, blood pressure 114/65, and oxygen saturation 96% on 2 L nasal cannula. GENERAL: Awake, alert, in no acute distress. LUNGS: Clear to auscultation bilaterally. No wheezes or crackles. CARDIOVASCULAR: Normal rate, regular rhythm. No murmur. Normal S1, S2. ABDOMEN: Soft, nontender. EXTREMITIES: Trace edema. CARDIAC MEDICATIONS: Amlodipine 10 mg p.o. daily, atorvastatin 20 mg p.o. daily. LABORATORY DATA: None today. TELEMETRY: Normal sinus rhythm. IMPRESSION: 1. Dyspnea. 2. Hypertension. 3. Hyperlipidemia. 4. Chronic obstructive pulmonary disease. 5. Shusb-po-xwdexhe diastolic heart failure. RECOMMENDATIONS: 1. Suspect the patient's dyspnea is combination of chronic obstructive pulmonary disease exacerbation as well as aqdso-cs-ypfuzdz diastolic heart failure. 2. Continue gentle diuresis. 3. Monitor creatinine closely. 4. Replete electrolytes. 5. Treatment of chronic obstructive pulmonary disease per Pulmonary. 6. Keep patient on Telemetry while admitted. 7. Continue current cardiac medications. Thank you for this consult. We will continue to follow. Bryanna Cagle MD ABS/MODL /[id number]
--- NOTE | 2019-01-19 20:13 | Discharge Summary ---
Also, she is going to need oxygen at home. The patient is told to avoid smoking. Nicoderm patch has been given to the patient. MD LIN Hernandez/DUSTIN /[id number]
--- NOTE | 2019-01-19 20:23 | Discharge Summary ---
HISTORY: The patient is a 63-year-old female, who has a past medical history positive for COPD, came here with COPD exacerbation. She was started on oxygen, albuterol and Atrovent. She had pneumonia vaccine. She is doing a lot better right now. The patient is going back to the assisted living. The patient has been seen also by Dr. Ronnell Badillo, Pulmonology, who released the patient to go home. PHYSICAL EXAMINATION: HEART: Showed regular rhythm. Normal S1 and S2 sound. LUNGS: Clear bilaterally, but significantly decreased. ABDOMEN: Soft. VITAL SIGNS: Blood pressure 114/65, temperature 98.8, heart rate 71 per minute, respiratory rate 25 per minute, oxygen saturation 96%. LABORATORY STUDIES: On the BMP; sodium 135, potassium 4.3, chloride 99, CO2 of 27, BUN 14, creatinine 0.72, glucose 120. On the CBC; white blood count 9.09, hemoglobin 11.8, hematocrit 36.7, and platelet count of 215,000. AST 8, ALT 14, total bilirubin 0.2, alkaline phosphatase 71. FINAL IMPRESSION: 1. Chronic obstructive pulmonary disease exacerbation. 2. Hypertension. 3. Hypercholesterolemia. 4. Nicotine abuse. PLAN OF TREATMENT: She is going to continue albuterol and Atrovent q.4 hours as needed for shortness of breath, amlodipine 10 mg daily, Protonix 40 mg daily, Medrol Dosepak to take as directed, simvastatin 20 mg daily, Symbicort one inhalation twice a day, doxycycline 100 mg p.o. twice a day, furosemide 40 mg daily, citalopram 20 mg daily, Nicoderm patch 21 mg daily. The patient also has history of chronic diastolic congestive heart failure, so she is going to be followed up by her primary care physician in a week. MD LIN Hernandez/DUSTIN /[id number]
== END 2019-01-19 19:00 | disposition home or self-care (01) | DRG 291 ==
LOC: ER 20:31 → ERHOLD 01-16 01:15 → ICU 01-16 02:00 → IMCU 01-17 20:30
PROVIDERS: ADMIT Internal Medicine; ATTEND Internal Medicine
DX: I11.0 Hypertensive heart disease with heart failure (principal); J96.00 Acute respiratory failure, unspecified whether with hypoxia or hypercapnia; J44.1 Chronic obstructive pulmonary disease with (acute) exacerbation; I50.23 Acute on chronic systolic (congestive) heart failure; Z87.891 Personal history of nicotine dependence; E78.5 Hyperlipidemia, unspecified; F17.200 Nicotine dependence, unspecified, uncomplicated
CPT/HCPCS: 36415; 36600; 71045; 71046; 80053; 82550; 82553; 82805; 83735; 83880; 84484; 85025; 90732; 93005; 93306; 93970; 94640; 94660; 94664; 99284; J1940; J2920